=== PATIENT | female | born 1980 | race Two or more races ===

== ENCOUNTER 2021-01-25 07:58 | Emergency (ER) | payer OTHER ==
[~2021-01-25] VITALS: Ht 162.6 cm; Wt 88.0 kg
[2021-01-25] MEDS ORDERED: PRENA1 CHEW TA1.4 MG (08:12)
[2021-01-25] MEDS ORDERED: PROMETRIUM200 MG (08:13)
[2021-01-25] MEDS ORDERED: MONDOXYNE NL100 MG PO (22:09)
== END 2021-01-25 11:50 | disposition home or self-care (01) ==
LOC: ER 07:58
DX: O36.4XX1 Maternal care for intrauterine death, fetus 1 (principal); Z3A.01 Less than 8 weeks gestation of pregnancy

== ENCOUNTER 2021-01-25 19:07 | Inpatient (IN) | payer OTHER ==
[~2021-01-25] VITALS: Ht 165.1 cm; Wt 97.5 kg
[~2021-01-25 19:07] MED LIST: PRENA1 CHEW TA1.4 MG; PROMETRIUM200 MG
[2021-01-25] MEDS ORDERED: MONDOXYNE NL100 MG PO (22:09)
== END 2021-01-26 03:20 | disposition home or self-care (01) | DRG 770 ==
LOC: ER 19:07 → SEC-K 21:46
PROVIDERS: ADMIT Obstetrics & Gynecology; ATTEND Obstetrics & Gynecology
PROC: 10D17ZZ Extraction of Products of Conception, Retained, Via Natural or Artificial Opening (ICD-10-PCS; principal; 2021-01-25 21:30)
DX: O03.4 Incomplete spontaneous abortion without complication (principal)